=== PATIENT | female | born 1985 | race Caucasian/White ===

== ENCOUNTER → 2021-09-08 07:15 | Outpatient (CLI) | payer BC, SELFPAY ==
[2021-09-08 13:55] LABS: Basophils % 0.5 % (0.1-2.0); Eosinophils # 0.1 K/mm3 (0.0-0.4); Eosinophils % 1.7 % (0.1-12.0); Hematocrit 43.7 % (37.0-47.0); Hemoglobin 14.5 g/dL (12.2-16.2); Lymphocytes # 1.6 K/mm3 (0.7-4.5); Lymphocytes % 29.5 % (10-50); Mean Corpuscular HGB Conc 33.1 g/dL (31.8-35.4); Mean Corpuscular Hemoglobin 32.7 pg (27.0-31.2); Mean Corpuscular Volume 98.9 fl (81-99); Mean Platelet Volume 8.3 fl (7.4-10.4); Monocytes # 0.3 K/mm3 (0.1-1.0); Monocytes % 4.9 % (1.7-9.3); Neutrophils # 3.4 K/mm3 (1.8-7.8); Neutrophils % 63.4 % (37.0-80.0); Platelet Count 374 K/mm3 (142-424); Red Blood Count 4.42 M/mm3 (4.20-5.40); Red Cell Distribution Width 12.9 % (11.5-17.5); White Blood Count 5.4 K/mm3 (4.8-10.8)
[2021-09-08 14:03] LABS: Cholesterol 257 mg/dl (140-200); HDL Cholesterol 64 mg/dl (40-60); Triglycerides 87 mg/dl (30-150); VLDL Cholesterol 17 mg/dL (0-40)
[2021-09-08 14:04] LABS: Alanine Aminotransferase 22 U/L (12-78); Albumin Level 4.6 g/dl (3.5-5.0); Albumin/Globulin Ratio 1.9 (1.1-1.8); Alkaline Phosphatase 58 U/L (38-126); Anion Gap 12.8 mEq/L (5-15); Aspartate Amino Transferase 26 U/L (14-36); Bilirubin,Total 0.7 mg/dl (0.2-1.3); Blood Urea Nitrogen 11 mg/dl (7-17); Carbon Dioxide 26 mmol/L (22.0-30.0); Chloride 105 mmol/L (98-107); Estimated Glomerular Filt Rate 94 ml/min (>60); GFR (African American) 113 ML/MIN (>60); Globulin 2.4 g/dL (1.3-3.2); Glucose 94 mg/dl (74-100); Potassium 4.8 mmoL/L (3.5-5.1); Sodium 139 mmol/L (136-145)
[2021-09-08 14:14] LABS: Direct LDL Cholesterol 177.03 mg/dL (100-129)
[2021-09-08 14:34] LABS: Thyroid Stimulating Hormone 2.93 uIU/mL (0.465-4.68)
== END ==
PROVIDERS: PCP Family Medicine; Visit Provider Nuclear Medicine Nuclear Cardiology
DX: R06.02 Shortness of breath (principal); R22.41 Localized swelling, mass and lump, right lower limb; E78.00 Pure hypercholesterolemia, unspecified
CPT/HCPCS: 36415; 80053; 80061; 84439; 84443; 85025

== ENCOUNTER 2022-09-16 16:00 | Outpatient (RCR) | payer BC, SELFPAY | END 2022-10-14 16:00 | disposition home or self-care (01) | LOC: PT 16:00 | PROVIDERS: PCP Family Medicine; Visit Provider Orthopaedic Surgery Adult Reconstructive Orthopaedic Surgery | DX: M50.30 Other cervical disc degeneration, unspecified cervical region (principal) | CPT/HCPCS: 97010; 97012; 97014; 97110; 97140; 97163; G0283 ==

== ENCOUNTER 2023-01-12 11:08 | Emergency (ER) | payer BC, SELFPAY ==
[2023-01-12 11:09] VITALS: BP 148/92; PULSE 91; RESP 18; TEMP 36.6; O2SAT 98; BMI 30.7
--- NOTE | 2023-01-12 11:18 | XR_ITS ---
FINAL REPORT CLINICAL HISTORY: Pt fell last night, right ankle pain COMPARISON: None FINDINGS: RIGHT ANKLE 3 views of the right ankle were obtained. There is no acute fracture or dislocation. The mortise is intact. Visualized joint spaces are normally aligned. Soft tissues are unremarkable. IMPRESSION: No acute bony abnormality. Reviewed, Interpreted and Dictated by Bayron Bray MD Transcribed by Tran Nicolas Authenticated and [facility]
--- NOTE | 2023-01-12 11:18 | XR_ITS ---
FINAL REPORT CLINICAL HISTORY: Pt fell last night, pain along right 5th metatarsal COMPARISON: None FINDINGS: RIGHT FOOT 3 views of the right foot were obtained. There is no acute fracture or dislocation. There is a linear focus of abnormal ossific density lateral to the calcaneus measuring about 5 mm. This may represent an avulsion, age-indeterminate. Visualized joint spaces are normally aligned. Soft tissues are unremarkable. IMPRESSION: Questionable small avulsion along the lateral aspect of the distal calcaneus, age-indeterminate. Reviewed, Interpreted and Dictated by Bayron Bray MD Transcribed by Tran Nicolas Authenticated and [facility]
--- NOTE | 2023-01-12 11:21 | EXP.UTC ---
Discharge Plan Disposition Patient Disposition: Home Health Service Condition: Good Prescriptions Prescriptions: New ibuprofen [ibuprofen] 600 mg tablet 600 mg PO Q6HP PRN (Reason: Mild Pain) Qty: 30 0RF Referrals Follow up/Referrals: Forrest Singleton [Primary Care Provider] - See instructions Jerica Augustine DPM [Staff Physician] - See instructions Activity Restrictions/Add. Instructions Additional Instructions/Restrictions: Rest the extremity, apply ice for 15 minutes as tolerated three or four times per day, Elevate the extremity as tolerated while you are resting. Take ibuprofen for pain. I sent in a prescription to your pharmacy. Follow up with Dr. Augustine (podiatry). I put in a referral but you need to call her office and schedule an appointment. Follow up with your regular doctor. GO TO THE ER FOR ANY WORSENING SYMPTOMS Clinical Impressions Clinical Impression: Foot fracture, right Discharge ED Provider: Cecil Rouse [facility] HPI General Stated complaint: Fall 01/11@home RT foot pain Time Seen by Provider: 01/12/23 11:15 History of Present Illness Provider Complaint: She states that she twisted her right foot yesterday. She states that since then she has had right foot and ankle pain. Related Data Previous Rx's Medication Instructions Recorded ibuprofen 600 mg tablet 600 mg PO Q6HP PRN Mild Pain #30 01/12/23 tabs Allergies Allergy/AdvReac Type Severity Reaction Status Date / Time Penicillins Allergy Verified 01/12/23 11:23 [facility] Disclaimer: The information contained in this section may have been updated after the patient was seen, as this information can be updated by other users. Social History Smoking Status: Never smoker alcohol intake: never current occupational status: employed Travel in the last 8 weeks: None ROS Obtained: Yes All systems reviewed & no additional complaints except as documented Constitutional Constitutional: Denies chills and Denies fever(s) Eyes Eyes: Denies eye discharge ENT Ears, Nose, Mouth, and Throat: Denies dizziness, Denies otalgia and Denies sore throat Cardiovascular Cardiovascular: Denies chest pain Respiratory Respiratory: Denies shortness of breath, Denies chest congestion, Denies cough, Denies stridor and Denies wheezing Gastrointestinal Gastrointestingal: Denies nausea or vomiting Musculoskeletal Musculoskeletal: Reports as per HPI Integumentary/Breasts Skin/Breast: Denies rash Neurologic Neurologic: Denies dizziness and Denies paresthesias Allergic/Immunologic Allergic/Immunologic: Denies wheezing Physical Exam General General appearance: alert and in no apparent distress Head Head exam: atraumatic, normocephalic and normal inspection Eye Eye exam: Present normal appearance, PERRL and EOMI ENT ENT exam: Present normal exam, normal oropharynx, mucous membranes moist, TM's normal bilaterally and normal external ear exam Neck Neck exam: Present normal inspection, full ROM and trachea midline; Absent meningismus or lymphadenopathy Chest Chest inspection: Present normal inspection and symmetric chest wall rise; Absent tenderness Respiratory Respiratory exam: Present normal lung sounds bilaterally; Absent respiratory distress Cardiovascular Cardiovascular exam: Present regular rate and normal rhythm; Absent JVD Abdominal Exam Abdominal exam: Present soft and normal bowel sounds; Absent distention, tenderness or guarding Extremities Exam Extremities exam: Present normal capillary refill; Absent calf tenderness Expanded Lower Extremity Exam Right: Knee exam: Present normal inspection and full ROM; Absent tenderness Lower leg exam: Present normal inspection, full ROM and Achilles tendon intact; Absent tenderness Ankle exam: Present full ROM, tenderness and swelling; Absent abrasion, laceration, ecchymosis, deformity, crepitus, dislocation, erythema, tendern
[2023-01-12 13:27] VITALS: BP 148/92; PULSE 91; RESP 18; TEMP 36.6; O2SAT 98
== END 2023-01-12 13:28 | disposition home health service (06) ==
PROVIDERS: Emergency Provider Nurse Practitioner Family; PCP Family Medicine
DX: S92.001A Unspecified fracture of right calcaneus, initial encounter for closed fracture (principal); X50.1XXA Overexertion from prolonged static or awkward postures, initial encounter
CPT/HCPCS: 73610; 73630; 99204; 99212; 99214; G0463

== ENCOUNTER → 2023-02-15 09:10 | Outpatient (CLI) | payer BC, SELFPAY ==
--- NOTE | 2023-02-15 09:13 | XR_ITS ---
FINAL REPORT CLINICAL HISTORY: Ankle Fracture COMPARISON: 01/12/2023 FINDINGS: Right foot Three views were obtained. There are small avulsion fractures along the lateral cuboid and calcaneus which are less apparent since the prior compatible with partially healing fractures. The joint spaces appear normal. No soft tissue abnormality is identified. IMPRESSION: Healing fractures of the lateral cuboid and calcaneus. Reviewed, Interpreted and Dictated by Yuliana Zavala MD Transcribed by Denisse Negron Authenticated and . [facility]
== END ==
PROVIDERS: PCP Family Medicine; Visit Provider Podiatrist
DX: M79.671 Pain in right foot (principal)
CPT/HCPCS: 73630

== ENCOUNTER 2023-03-15 10:00 | Outpatient (RCR) | payer BC, SELFPAY ==
--- NOTE | 2023-03-01 10:00 | HMH.PTOPEV ---
PT Outpatient Evaluation Rehab PT Outpatient Evaluation Start: 03/01/23 08:57 Freq: Status: Active Protocol: Document 03/01/23 08:57 GREG (Rec: 03/01/23 10:00 PDESEROUX [id number]) E-signed By Candido Shelton, PT Outpatient Therapy Subjective History Subjective History Pt. is a 37 year old female who presents to [facility] in [place] for the initial evaluation this date(03/01/23) w/ c/o subacute and intermittent RLE ankle/foot P! and stiffness of traumatic onset on 01/09/23. Pt. reports , I broke my foot while pt. was playing with her kids, stated falling backwards and landing wrong. Diagnostic imaging was positive for a fracture, however, recent diagnostic imaging indicated fracture healing per pt. report. Pt. denies having recent injections for current complaint. Pt. reports donning CAM bt. walker x6 wks., was released from CAM bt. and restrictions after recent RTMD on 02/15/23. Pt. RTMD PRN. Pt. reports bending my foot, squatting, and stooping to play with her kids worsen symptoms. Pt. reports having symptom relief w/ rest. Current medications include Ibuprofen PRN and Duloxetine. PMH includes Appendectomy, Cervical Radiculopathy, and section. Chief Complaint Pain,Stiff,Swelling,Weakness Symptom Type Ache,Sharp,Dull,Stabbing, Burning,Shooting Symptoms Relieved By Rest/Positioning,Ice,OTC Meds, Prescription Meds Symptoms Aggravated By Standing,Bending/Stooping, Physical Activity,Twisting, Walking Prior Functional Limitations None Current Functional Limitations Dressing,Standing,Squatting, Recreation Activity,Walking, Stairs,Balance,Bending/
== END 2023-04-05 07:30 | disposition home or self-care (01) ==
LOC: PT 10:00
PROVIDERS: PCP Family Medicine; Visit Provider Podiatrist
DX: S92.001A Unspecified fracture of right calcaneus, initial encounter for closed fracture (principal)
CPT/HCPCS: 97010; 97014; 97110; 97112; 97163; 97530; G0283